=== PATIENT | female | born 1990 | race Caucasian/White ===

== ENCOUNTER → 2017-09-08 16:10 | Outpatient (CLI) | payer BC, SELFPAY ==
[2017-09-08 17:35] LABS: Hematocrit 38.9 % (37-47); Hemoglobin 13.2 g/dl (12.0-15.0); Mean Corp Hgb Conc 33.9 g/gl (32-36); Mean Corpuscular Volume 91.3 fL (81-99); Mean Platelet Vol. 12.3 fl (6.2-12.0); Platelet Count 213 K/mm3 (150-450); RBC Distribution Width CV 11.4 % (11.6-14.6); Red Blood Count 4.26 M/mm3 (4.2-5.4); White Blood Count 7.9 K/mm3 (4.4-11.0)
[2017-09-08 17:44] LABS: Scan Indicated on CBC? Y/N NO
[2017-09-08 18:25] LABS: CRP < 2.90 mg/L (0.0-3.0); T4 Total, Thyroxin 8.3 ug/dL (4.8-13.9); Thyroid Stim Hormone (TSH) 6.61 uIU/mL (0.358-3.74)
[2017-09-10 20:09] LABS: Endomysial Antibody IgA Negative (Negative)
[2017-09-11 08:14] LABS: Immunoglobulin A 141 mg/dL (87-352); t-Transglutaminase IgA <2 U/mL (0-3)
== END ==
PROVIDERS: Visit Provider Internal Medicine Gastroenterology
DX: R19.7 Diarrhea, unspecified (principal)
CPT/HCPCS: 36415; 82784; 83516; 84436; 84443; 85027; 86140; 86255